=== PATIENT | female | born 1970 | race Caucasian/White ===

== ENCOUNTER 2018-07-04 15:53 | Emergency (ER) | payer OTHER ==
[~2018-07-04] VITALS: Ht 167.6 cm; Wt 88.5 kg
[2018-07-04] MEDS ORDERED: ASPIR 8181 MG PO (19:47)
== END 2018-07-04 21:33 | disposition home or self-care (01) ==
LOC: ER 15:53
DX: E16.1 Other hypoglycemia (principal); R47.81 Slurred speech

== ENCOUNTER 2024-11-17 13:09 | Outpatient (CLI) | payer OTHER ==
[~2024-11-17 13:09] MED LIST: ASPIR 8181 MG PO
== END 2024-11-17 13:10 | disposition home or self-care (01) ==
LOC: LAB 13:09
DX: J06.9 Acute upper respiratory infection, unspecified (principal)

== ENCOUNTER 2025-04-16 08:56 | Outpatient (CLI) | payer OTHER | END 2025-04-16 09:03 | disposition home or self-care (01) | LOC: RAD 08:56 | DX: M54.50 Low back pain, unspecified (principal); M54.2 Cervicalgia ==